=== PATIENT | male | born 1960 | race Caucasian/White ===

== ENCOUNTER 2018-01-02 14:52 | Emergency (ER) | payer MEDICARE, OTHER ==
[~2018-01-02] VITALS: Ht 177.8 cm; Wt 104.3 kg
[~2018-01-02 14:52] MED LIST: AMLO2.5T PO; ASPI-999 PO; CITA40TA19 PO; GABA800T2 PO; IBUP-1780 PO; IBUP-2055 PO; LISI-552 PO; ONDA4TAB8 PO; TRAM50TA2 PO
--- OUTSIDE RECORDS SUMMARY | 2018-01-02 14:58 | XMS REPORT ---
Author Author ASUNCION LAUREN Organization [employer] Address Unknown Phone Unavailable Care Team Providers Care Frame Polisher Name Role Phone ASUNCION LAUREN CP Unavailable Allergies No Known Allergies Problems No Known Problems Medications No Known Medications Results No Known Results Summary Purpose [employer] Submission
--- OUTSIDE RECORDS SUMMARY | 2018-01-02 14:58 | XMS REPORT ---
Author Author ASUNCION LAUREN [facility] Address [address] [place] [address] Care Team Providers Care Black Puller Name Role Phone ASUNCION LAUREN Unavailable PROBLEMS Type Condition ICD9-CM Code [id number] Code Onset Dates Condition Status SNOMED Code Problem Other chronic pain G89.29 Active 74175132 Problem Alcohol abuse with intoxication, unspecified F10.129 Active 007227174 Problem Essential hypertension I10 Active 57752893 Problem Alcohol abuse F10.10 Active 27802623 Problem Suicide attempt T14.91 Active 39837772 Problem Low back pain M54.5 Active 422522631 Problem Acute stress disorder F43.0 Active 50450202 Problem Major depressive disorder, single episode, severe F32.2 Active 380621644353 Problem Uncomplicated alcohol dependence F10.20 Active 70721206 Problem Major depressive disorder with single episode, remission status unspecified F32.9 Active 32403581 Problem Lumbago with sciatica, right side M54.41 Active 042253832 Problem Opioid dependence in remission F11.21 Active 071157636 ALLERGIES No Information SOCIAL HISTORY Never Assessed PLAN OF CARE VITAL SIGNS MEDICATIONS No Known Medications RESULTS No Results PROCEDURES No Known procedures IMMUNIZATIONS No Known Immunizations MEDICAL (GENERAL) HISTORY Type Description Date Medical History Hypertension Medical History Depression Medical History Chronic Back Pain Medical History Polysubstance abuse. Medical History intentional overdose 07/2016 Surgical History Left knee replacement x4 Hospitalization History surgeries Hospitalization History suicide attempt, polysubstance abusem uncontrolled HTN , Intentional overdose--[facility] 08/07/16
--- OUTSIDE RECORDS SUMMARY | 2018-01-02 14:58 | XMS REPORT ---
Author Author ASUNCION LAUREN [facility] Address [address] [place] [address] Care Team Providers Care Safety Glass Installer Name Role Phone ASUNCION LAUREN Unavailable PROBLEMS Type Condition ICD9-CM Code HCQ29-DE Code Onset Dates Condition Status SNOMED Code Problem Essential hypertension I10 Active 68014733 Problem Other chronic pain G89.29 Active 20222900 Problem Alcohol abuse F10.10 Active 36991785 Assessment Psychiatric disorder F99 13 Aug, 2016 Active 43124572 Problem Low back pain M54.5 Active 029638692 Problem Suicide attempt T14.91 Active 09243719 ALLERGIES Unknown Allergies SOCIAL HISTORY No smoking Hx information available PLAN OF CARE VITAL SIGNS MEDICATIONS Medication Instructions Dosage Frequency Start Date End Date Duration Status Mirtazapine 7.5 MG Orally Once a day 1 tablet at bedtime 24h Active RESULTS No Results PROCEDURES No Known procedures IMMUNIZATIONS No Known Immunizations
--- OUTSIDE RECORDS SUMMARY | 2018-01-02 14:58 | XMS REPORT ---
Author Author ASUNCION LAUREN [facility] Address [address] [place] [address] Care Team Providers Care Deck Molder Name Role Phone ASUNCION LAUREN Unavailable PROBLEMS Type Condition ICD9-CM Code HWB88-SC Code Onset Dates Condition Status SNOMED Code Problem Other chronic pain G89.29 Active 01281869 Problem Alcohol abuse with intoxication, unspecified F10.129 Active 680941510 Problem Essential hypertension I10 Active 08735875 Problem Alcohol abuse F10.10 Active 79774943 Problem Suicide attempt T14.91 Active 98329757 Problem Low back pain M54.5 Active 557264841 Problem Acute stress disorder F43.0 Active 44851051 Problem Major depressive disorder, single episode, severe F32.2 Active 767168746392 Problem Uncomplicated alcohol dependence F10.20 Active 64378355 Problem Major depressive disorder with single episode, remission status unspecified F32.9 Active 84301085 Problem Lumbago with sciatica, right side M54.41 Active 941232595 Problem Opioid dependence in remission F11.21 Active 159386945 ALLERGIES No Known Allergies SOCIAL HISTORY No smoking Hx information available PLAN OF CARE VITAL SIGNS MEDICATIONS Medication Instructions Dosage Frequency Start Date End Date Duration Status Tramadol HCl 50 MG Orally 3 times a day 1 tablet as needed 8h 28 days Active RESULTS No Results PROCEDURES No Known procedures IMMUNIZATIONS No Known Immunizations
--- OUTSIDE RECORDS SUMMARY | 2018-01-02 14:59 | XMS REPORT ---
Author Author MARK COPELAND [facility] Address [address] [place] [address] Care Team Providers Care Supervisor Nuclear Medicine Name Role Phone MARK COPELAND Unavailable PROBLEMS Type Condition ICD9-CM Code TDY82-CF Code Onset Dates Condition Status SNOMED Code Problem Other chronic pain G89.29 Active 66967628 Problem Low back pain M54.5 Active 394069127 Assessment Hypotension due to drugs I95.2 May, Active 777706822 Problem Suicide attempt T14.91 Active 20096492 Problem Alcohol abuse F10.10 Active 14873938 ALLERGIES Substance Reaction Event Type Date Status N.K.D.A. Unknown Non Drug Allergy May, Unknown SOCIAL HISTORY No smoking Hx information available PLAN OF CARE VITAL SIGNS Height 70 in 2016-06-18 Weight 231.5 lbs 2016-06-18 Heart Rate 100 bpm 2016-06-18 Respiratory Rate 18 2016-06-18 BMI 33.21 kg/m2 2016-06-18 Blood pressure systolic 98 mmHg 2016-06-18 Blood pressure diastolic 70 mmHg 2016-06-18 MEDICATIONS Medication Instructions Dosage Frequency Start Date End Date Duration Status Aspir-81 81 MG Orally Once a day 1 tablet 24h Active Ibuprofen 200 MG Orally every 6 hrs 1 tablet as needed 6h Active Gabapentin 800 MG Orally Three times a day 1 tablet 8h Active Benadryl 50 mg 3 tablets at bedtime Active Naproxen 250 MG Orally every 4-6 hours as needed 1 tablet Active Tramadol HCl 50 mg Orally every 3 hours 1 tablet as needed 3h Active Citalopram Hydrobromide 20 mg Orally Once a day 1 tablet 24h Active RESULTS No Results PROCEDURES Procedure Date Ordered Related Diagnosis Body Site Office Visit, Est Pt., Level 3 Jun 18, 2016 IMMUNIZATIONS No Known Immunizations
--- OUTSIDE RECORDS SUMMARY | 2018-01-02 14:59 | XMS REPORT ---
Author Author ASUNCION LAUREN [facility] Address [address] [place] [address] Care Team Providers Care Doctor Of Podiatric Medicine Name Role Phone ASUNCION LAUREN Unavailable PROBLEMS Type Condition ICD9-CM Code UHA33-LG Code Onset Dates Condition Status SNOMED Code Problem Other chronic pain G89.29 Active 64599993 Problem Alcohol abuse with intoxication, unspecified F10.129 Active 138283912 Problem Essential hypertension I10 Active 58071138 Problem Alcohol abuse F10.10 Active 38499906 Problem Suicide attempt T14.91 Active 50240659 Problem Low back pain M54.5 Active 616417679 Problem Acute stress disorder F43.0 Active 26772646 Problem Major depressive disorder, single episode, severe F32.2 Active 026044317625 Problem Uncomplicated alcohol dependence F10.20 Active 85776378 Problem Major depressive disorder with single episode, remission status unspecified F32.9 Active 10224574 Problem Lumbago with sciatica, right side M54.41 Active 772981759 Problem Opioid dependence in remission F11.21 Active 882950632 ALLERGIES Substance Reaction Event Type Date Status N.K.D.A. Unknown Non Drug Allergy Sep, Unknown SOCIAL HISTORY No smoking Hx information available PLAN OF CARE Activity Details Follow Up 3 Months Reason:chronic pain VITAL SIGNS Height 70 in 2016-10-14 Weight 244.4 lbs 2016-10-14 Temperature 97.8 degrees Fahrenheit 2016-10-14 Heart Rate 80 bpm 2016-10-14 Respiratory Rate 20 2016-10-14 BMI 35.06 kg/m2 2016-10-14 Blood pressure systolic 146 mmHg 2016-10-14 Blood pressure diastolic 92 mmHg 2016-10-14 MEDICATIONS Medication Instructions Dosage Frequency Start Date End Date Duration Status Mirtazapine 15 MG Orally Once a day 0.5 tablet at bedtime 24h 30 days Active Aspir-81 81 MG Orally Once a day 1 tablet 24h Active Lisinopril 40 mg Orally Once a day 1 tablet 24h Active Ibuprofen 800 MG Orally every 8 hours, PRN 1 tablet as needed Active Amlodipine Besylate 2.5 MG Orally Once a day 1 tablet 24h Active Tramadol HCl 50 MG Orally 3 times a day 1 tablet as needed 8h 28 days Active Citalopram Hydrobromide 40 MG Orally Once a day 1 tablet 24h Active Lidoderm 5 % Externally Once a day Remove after 12 hours. May use only 1 patch every 24 hours 1 patch Aug, Active Gabapentin 800 MG Orally Three times a day 1 tablet 8h Active Norvasc 10 MG Orally Once a day 1 tablet 24h Active RESULTS Name Result Date Reference Range LIPID PANEL 2016-10-14 Cholesterol, Total 157 100-199 Triglycerides 139 0-149 HDL Cholesterol 46 >39 VLDL Cholesterol Lucho 28 5-40 LDL Cholesterol Calc 83 0-99 Comment: CMP 2016-10-14 Glucose, Serum 86 65-99 BUN 10 6-24 Creatinine, Serum 0.82 0.76-1.27 eGFR If NonAfricn Am 100 >59 eGFR If Africn Am 115 >59 BUN/Creatinine Ratio 12 9-20 Sodium, Serum 136 134-144 Potassium, Serum 4.6 3.5-5.2 Chloride, Serum 96 96-106 Carbon Dioxide, Total 24 18-29 Calcium, Serum 9.2 8.7-10.2 Protein, Total, Serum 6.8 6.0-8.5 Albumin, Serum 4.4 3.5-5.5 Globulin, Total 2.4 1.5-4.5 A/G Ratio 1.8 1.1-2.5 Bilirubin, Total 0.3 0.0-1.2 Alkaline Phosphatase, S 76 39-117 AST (SGOT) 19 0-40 ALT (SGPT) 17 0-44 PROCEDURES Procedure Date Ordered Related Diagnosis Body Site COMPREHEN METABOLIC PANEL Oct 14, 2016 LIPID PANEL Oct 14, 2016 VENIPUNCT, ROUTINE* Oct 14, 2016 Office Visit, Est Pt., Level 3 Oct 14, 2016 IMMUNIZATIONS No Known Immunizations
--- OUTSIDE RECORDS SUMMARY | 2018-01-02 14:59 | XMS REPORT ---
Author Author ASUNCION LAUREN Organization [facility] Address [address] [place] [address] Care Team Providers Care Medical Doctor Nuclear Medicine Name Role Phone ASUNCION LAUREN Unavailable PROBLEMS Type Condition ICD9-CM Code YZU87-AG Code Onset Dates Condition Status SNOMED Code Problem Other chronic pain G89.29 Active 45231491 Problem Alcohol abuse with intoxication, unspecified F10.129 Active 448046682 Problem Essential hypertension I10 Active 55398476 Problem Alcohol abuse F10.10 Active 55782563 Problem Suicide attempt T14.91 Active 30116296 Problem Low back pain M54.5 Active 507681702 Problem Acute stress disorder F43.0 Active 68686916 Problem Major depressive disorder, single episode, severe F32.2 Active 651078509638 Problem Uncomplicated alcohol dependence F10.20 Active 78662970 Problem Major depressive disorder with single episode, remission status unspecified F32.9 Active 39826768 Problem Lumbago with sciatica, right side M54.41 Active 907822168 Problem Opioid dependence in remission F11.21 Active 813971666 ALLERGIES No Information ENCOUNTERS Encounter Location Date Diagnosis [place] [address] [place] [address] Sep, Lumbago with sciatica, right side M54.41 [place] [address] [place] [id number] [place] [address]50- [address]7 Sep, Essential hypertension I10 ; Lumbago with sciatica, right side M54.41 and Colon cancer screening Z12.11 [place] [address] [place] [address] 92346- 3590 14 Feb, 2017 Essential hypertension I10 and Major depressive disorder, single episode, severe F32.2 [place] [address] [place] [id number] [place] [address] 33054- 9840 Feb, Essential hypertension I10 [facility] [address] [place] [id number] [place] [address] 51587- 8426 January, Major depressive disorder, single episode, severe F32.2 and Acute stress disorder F43.0 [facility] [address] [place] [address] 53868- 3435 Dec, Major depressive disorder, single episode, severe F32.2 ; Lumbago with sciatica, right side M54.41 and Dysthymia F34.1 [place] [address] [place] [id number] [place] [address] 70122- 0967 Dec, Major depressive disorder, single episode, severe F32.2 [place] [address] [place] [id number] [place] [address] 07946- 4890 Dec, Major depressive disorder with single episode, remission status unspecified F32.9 ; Uncomplicated alcohol dependence F10.20 and Opioid dependence in remission F11.21 [place] [address] [place] [address] 33917- 2778 11 Dec, 2016 Lumbago with sciatica, right side M54.41 [place] [address] [place] [id number] [place] [address] 99386- 6487 15 Nov, 2016 [place] [address] [id number] [place] [address] 99883- 4066 15 Nov, 2016 Lumbago with sciatica, right side M54.41 ; Uncomplicated alcohol dependence F10.20 and Opioid dependence in remission F11.21 [place] [address] [place] [address] 68177- 0798 14 Nov, 2016 Other chronic pain G89.29 [facility] [address] [address] [id number] [place] [address] 18943- 3546 14 Oct, 2016 Other chronic pain G89.29 [facility] [address] [place] [id number] [place] [address] 69070- 5523 07 Oct, 2016 Major depressive disorder with single episode, remission status unspecified F32.9 ; Uncomplicated alcohol dependence F10.20 and Opioid dependence in remission F11.21 [facility] [address] [id number] [place] [address] 31754- 6526 Sep, 2017 Major depressive disorder with single episode, remission status unspecified F32.9 ; Uncomplicated alcohol dependence F10.20 and Opioid dependence in remission F11.21 [facility] [address] [address] Sep, [facility] [address] [place] [address] Sep, [facility] [address] [place] [id number] [place] [address] 48832- 2152 Sep, Dysthymia F34.1 ; Essential hypertension I10 ; Alcohol abuse with intoxication, unspecified F10.129 and Other chronic pain G89.29 [facility] [address] [address] [id number] [place] [address] 29190- 4084 Sep, Other chronic pain G89.29 [facility] [address] [id number] [place] [address] 12673- 0647 Sep, Psychiatric disorder F99 [facility] [address] [id number] [place] [address] 31041- 3005 Aug, [facility] [address] [id number] [place] [address] 47829- 0941 Aug, Other chronic pain G89.29 [facility] [address] [id number] [place] [address] 58416- 0537 Aug, Psychiatric disorder F99 [facility] [address] [id number] [place] [address] 46940- 0258 23 Jul, 2016 Other chronic pain G89.29 and Essential hypertension I10 [facility] [address] [id number] [place] [address] 64159- 5170 Jul, [facility] [id number] [place] [address] 95322- 5628 14 Jul, 2016 [place] [address] [address] May, Lumbago with sciatica, right side M54.41 ; Other chronic pain G89.29 ; Dysthymia F34.1 and Essential hypertension I10 [place] [address] [place] [address] May, Hypotension due to drugs I95.2 [place] [address] [id number] [place] [address] 58558- 3365 May, [place] [address] [id number] [place] [address] 49550- 8747 May, Pseudogout M11.20 and Dysthymia F34.1 [place] [address] [id number] [place] [address] 46768- 7758 Apr, [place] [address] [place] [id number] [place] [address] 64554- [address] Apr, Encounter to establish care Z76.89 ; Dysthymia F34.1 ; Lumbago with sciatica, right side M54.41 ; Other chronic pain G89.29 and Pseudogout M11.20 IMMUNIZATIONS No Known Immunizations SOCIAL HISTORY Never Assessed REASON FOR VISIT Requests Return Call PLAN OF CARE VITAL SIGNS MEDICATIONS Medication Instructions Dosage Frequency Start Date End Date Duration Status Lisinopril 20 MG Orally Once a day 1 tablet 24h 90 days Active RESULTS No Results PROCEDURES No Known procedures INSTRUCTIONS MEDICATIONS ADMINISTERED No Known Medications MEDICAL (GENERAL) HISTORY Type Description Date Medical History Hypertension Medical History Depression Medical History Chronic Back Pain Medical History Polysubstance abuse. Medical History intentional overdose 07/2016 Surgical History Left knee replacement x4 Hospitalization History surgeries Hospitalization History suicide attempt, polysubstance abusem uncontrolled HTN , Intentional overdose--[facility] 08/07/16
--- OUTSIDE RECORDS SUMMARY | 2018-01-02 14:59 | XMS REPORT ---
Author Author NAVEEN MARISCAL Organization [facility] Address [address] [place] [address] Care Team Providers Care Clinical Assoc Name Role Phone NAVEEN MARISCAL Unavailable PROBLEMS Type Condition ICD9-CM Code GZS43-VT Code Onset Dates Condition Status SNOMED Code Problem Other chronic pain G89.29 Active 27825983 Problem Alcohol abuse with intoxication, unspecified F10.129 Active 663644094 Problem Essential hypertension I10 Active 67045921 Problem Alcohol abuse F10.10 Active 59688076 Problem Suicide attempt T14.91 Active 17013107 Problem Low back pain M54.5 Active 067129520 Problem Acute stress disorder F43.0 Active 09921769 Problem Major depressive disorder, single episode, severe F32.2 Active 445430276924 Problem Uncomplicated alcohol dependence F10.20 Active 17427724 Problem Major depressive disorder with single episode, remission status unspecified F32.9 Active 58136217 Problem Lumbago with sciatica, right side M54.41 Active 187780663 Problem Opioid dependence in remission F11.21 Active 745412125 ALLERGIES No Known Allergies SOCIAL HISTORY No smoking Hx information available PLAN OF CARE Activity Details Follow Up 1 Week Reason:depresson VITAL SIGNS MEDICATIONS No Known Medications RESULTS No Results PROCEDURES Procedure Date Ordered Related Diagnosis Body Site Psychotherapy, patient &/family, 30 minutes, established patient Oct 18, 2016 IMMUNIZATIONS No Known Immunizations
--- OUTSIDE RECORDS SUMMARY | 2018-01-02 14:59 | XMS REPORT ---
Author Author ASUNCION LAUREN [facility] Address [address] [place] [address] Care Team Providers Care Electric Appliance Installer Name Role Phone ASUNCION LAUREN Unavailable PROBLEMS Type Condition ICD9-CM Code QFR06-YP Code Onset Dates Condition Status SNOMED Code Problem Other chronic pain G89.29 Active 87689620 Problem Alcohol abuse with intoxication, unspecified F10.129 Active 640143572 Problem Essential hypertension I10 Active 14318432 Problem Alcohol abuse F10.10 Active 31490562 Problem Suicide attempt T14.91 Active 54383949 Problem Low back pain M54.5 Active 937193927 Problem Acute stress disorder F43.0 Active 51734905 Problem Major depressive disorder, single episode, severe F32.2 Active 636368743563 Problem Uncomplicated alcohol dependence F10.20 Active 34093583 Problem Major depressive disorder with single episode, remission status unspecified F32.9 Active 03918950 Problem Lumbago with sciatica, right side M54.41 Active 281769032 Problem Opioid dependence in remission F11.21 Active 788022734 ALLERGIES No Known Allergies SOCIAL HISTORY Never Assessed PLAN OF CARE Activity Details Follow Up 3 Months Reason:pain mgmt VITAL SIGNS Height 70 in 2016-12-08 Weight 233.0 lbs 2016-12-08 Temperature 98.7 degrees Fahrenheit 2016-12-08 Heart Rate 88 bpm 2016-12-08 Respiratory Rate 20 2016-12-08 BMI 33.43 kg/m2 2016-12-08 Blood pressure systolic 130 mmHg 2016-12-08 Blood pressure diastolic 82 mmHg 2016-12-08 MEDICATIONS Medication Instructions Dosage Frequency Start Date End Date Duration Status Gabapentin 800 MG Orally Three times a day 1 tablet 8h 90 days Active Aspir-81 81 MG Orally Once a day 1 tablet 24h Active Tramadol HCl 50 mg Orally 2 times a day 1 tablet as needed 12h 15 Nov, 2016 28 days Active Tylenol Extra Strength 500 MG Orally every 6 hrs 2 tablets as needed 6h Active Ibuprofen 800 MG Orally 3 times a day 1 tablet as needed 8h 90 days Active Mirtazapine 15 MG Orally Once a day 0.5 tablet at bedtime 24h 30 days Active Citalopram Hydrobromide 40 MG Orally Once a day 1 tablet 24h Active Norvasc 10 MG Orally Once a day 1 tablet 24h Active Lidoderm 5 % Externally Once a day Remove after 12 hours. May use only 1 patch every 24 hours 1 patch Aug, Active Lisinopril 40 mg Orally Once a day 1 tablet 24h Active RESULTS No Results PROCEDURES No Known procedures IMMUNIZATIONS No Known Immunizations MEDICAL (GENERAL) HISTORY Type Description Date Medical History Hypertension Medical History Depression Medical History Chronic Back Pain Medical History Polysubstance abuse. Medical History intentional overdose 07/2016 Surgical History Left knee replacement x4 Hospitalization History surgeries Hospitalization History suicide attempt, polysubstance abusem uncontrolled HTN , Intentional overdose--[facility] 08/07/16
--- OUTSIDE RECORDS SUMMARY | 2018-01-02 14:59 | XMS REPORT ---
Author Author ALBERTO BENNETT Organization [facility] Address [address] [place] [address] Care Team Providers Care Water Pollution Control Inspector Name Role Phone ALBERTO BENNETT Unavailable PROBLEMS Type Condition ICD9-CM Code IRL18-CI Code Onset Dates Condition Status SNOMED Code Problem Other chronic pain G89.29 Active 95313138 Problem Alcohol abuse with intoxication, unspecified F10.129 Active 192583598 Problem Essential hypertension I10 Active 34564220 Problem Alcohol abuse F10.10 Active 22245268 Problem Suicide attempt T14.91 Active 98734235 Problem Low back pain M54.5 Active 931232069 Problem Acute stress disorder F43.0 Active 72052518 Problem Major depressive disorder, single episode, severe F32.2 Active 745628095740 Problem Uncomplicated alcohol dependence F10.20 Active 92109532 Problem Major depressive disorder with single episode, remission status unspecified F32.9 Active 20987121 Problem Lumbago with sciatica, right side M54.41 Active 429636846 Problem Opioid dependence in remission F11.21 Active 400404959 ALLERGIES No Information SOCIAL HISTORY Never Assessed PLAN OF CARE VITAL SIGNS MEDICATIONS No Known Medications RESULTS No Results PROCEDURES Procedure Date Ordered Result Body Site Alcohol and/or drug services December 08, 2016 IMMUNIZATIONS No Known Immunizations MEDICAL (GENERAL) HISTORY Type Description Date Medical History Hypertension Medical History Depression Medical History Chronic Back Pain Medical History Polysubstance abuse. Medical History intentional overdose 07/2016 Surgical History Left knee replacement x4 Hospitalization History surgeries Hospitalization History suicide attempt, polysubstance abusem uncontrolled HTN , Intentional overdose--[facility] 08/07/16
--- OUTSIDE RECORDS SUMMARY | 2018-01-02 14:59 | XMS REPORT ---
Author Author ASUNCION ALUREN [facility] Address [address] [place] [address] Care Team Providers Care Machine Applicator Cementer Name Role Phone ASUNCION LAUREN Unavailable PROBLEMS Type Condition ICD9-CM Code KMU36-YU Code Onset Dates Condition Status SNOMED Code Problem Other chronic pain G89.29 Active 26220002 Problem Alcohol abuse with intoxication, unspecified F10.129 Active 158078692 Problem Essential hypertension I10 Active 64094091 Problem Alcohol abuse F10.10 Active 37506591 Problem Suicide attempt T14.91 Active 13590464 Problem Low back pain M54.5 Active 075363498 Problem Acute stress disorder F43.0 Active 77700973 Problem Major depressive disorder, single episode, severe F32.2 Active 882910386837 Problem Uncomplicated alcohol dependence F10.20 Active 72225254 Problem Opioid dependence in remission F11.21 Active 962749073 Problem Lumbago with sciatica, right side M54.41 Active 389693383 Problem Major depressive disorder with single episode, remission status unspecified F32.9 Active 24172130 ALLERGIES No Known Allergies SOCIAL HISTORY No smoking Hx information available PLAN OF CARE VITAL SIGNS MEDICATIONS Medication Instructions Dosage Frequency Start Date End Date Duration Status Tramadol HCl 50 mg Orally 3 times a day 1 tablet as needed 8h Active RESULTS No Results PROCEDURES No Known procedures IMMUNIZATIONS No Known Immunizations
--- OUTSIDE RECORDS SUMMARY | 2018-01-02 14:59 | XMS REPORT ---
Author Author ASUNCION LAUREN [facility] Address [address] [place] [address] Care Team Providers Care Group Leader Semiconductor Processing Name Role Phone ASUNCION LAUREN Unavailable PROBLEMS Type Condition ICD9-CM Code [id number] Code Onset Dates Condition Status SNOMED Code Problem Other chronic pain G89.29 Active 64993135 Problem Alcohol abuse with intoxication, unspecified F10.129 Active 459630324 Problem Essential hypertension I10 Active 18546360 Problem Alcohol abuse F10.10 Active 53832719 Problem Suicide attempt T14.91 Active 23893771 Problem Low back pain M54.5 Active 084001436 Problem Acute stress disorder F43.0 Active 82126963 Problem Major depressive disorder, single episode, severe F32.2 Active 769938118511 Problem Uncomplicated alcohol dependence F10.20 Active 85362427 Problem Major depressive disorder with single episode, remission status unspecified F32.9 Active 80385635 Problem Lumbago with sciatica, right side M54.41 Active 796490481 Problem Opioid dependence in remission F11.21 Active 572539109 ALLERGIES No Information SOCIAL HISTORY Never Assessed PLAN OF CARE VITAL SIGNS MEDICATIONS Medication [...] attempt, polysubstance abusem uncontrolled HTN , Intentional overdose--[facility] 08/07/16
--- OUTSIDE RECORDS SUMMARY | 2018-01-02 14:59 | XMS REPORT ---
Author Author ASUNCION LAUREN [facility] Address [address] [place] [address] Care Team Providers Care Cotton Weigher Name Role Phone ASUNCION LAUREN Unavailable PROBLEMS Type Condition ICD9-CM Code [id number] Code Onset Dates Condition Status SNOMED Code Problem Other chronic pain G89.29 Active 38851789 Problem Alcohol abuse with intoxication, unspecified F10.129 Active 111857360 Problem Essential hypertension I10 Active 69529048 Problem Alcohol abuse F10.10 Active 69622681 Problem Suicide attempt T14.91 Active 37294052 Problem Low back pain M54.5 Active 074215340 Problem Acute stress disorder F43.0 Active 56708240 Problem Major depressive disorder, single episode, severe F32.2 Active 111026424958 Problem Uncomplicated alcohol dependence F10.20 Active 44441968 Problem Opioid dependence in remission F11.21 Active 112210769 Problem Lumbago with sciatica, right side M54.41 Active 090791578 Problem Major depressive disorder with single episode, remission status unspecified F32.9 Active 37922620 ALLERGIES No Known Allergies SOCIAL HISTORY No smoking Hx information available PLAN OF CARE VITAL SIGNS MEDICATIONS Medication Instructions Dosage Frequency Start Date End Date Duration Status Lidoderm 5 % Externally Once a day Remove after 12 hours. May use only 1 patch every 24 hours 1 patch Aug, Active RESULTS No Results PROCEDURES No Known procedures IMMUNIZATIONS No Known Immunizations
--- OUTSIDE RECORDS SUMMARY | 2018-01-02 14:59 | XMS REPORT ---
Author Author ASUNCION LAUREN [facility] Address [address] [place] [address] Care Team Providers Care Product Ambassador Name Role Phone ASUNCION LAUREN Unavailable PROBLEMS Type Condition ICD9-CM Code UOD13-UG Code Onset Dates Condition Status SNOMED Code Problem Other chronic pain G89.29 Active 51664093 Problem Low back pain M54.5 Active 072723628 Assessment Pseudogout M11.20 May, Active 074025266 Assessment Dysthymia F34.1 May, Active 73099625 Problem Suicide attempt T14.91 Active 92120041 Problem Alcohol abuse F10.10 Active 06520275 ALLERGIES Substance Reaction Event Type Date Status N.K.D.A. Unknown Non Drug Allergy May, Unknown SOCIAL HISTORY No smoking Hx information available PLAN OF CARE VITAL SIGNS Height 70 in 2016-05-27 Weight 228.6 lbs 2016-05-27 Heart Rate 76 bpm 2016-05-27 Respiratory Rate 18 2016-05-27 BMI 32.80 kg/m2 2016-05-27 Blood pressure systolic 94 mmHg 2016-05-27 Blood pressure diastolic 60 mmHg 2016-05-27 MEDICATIONS Medication Instructions Dosage Frequency Start Date End Date Duration Status Ibuprofen 200 MG Orally every 6 hrs 1 tablet as needed 6h Active Citalopram Hydrobromide 20 mg Orally Once a day 1 tablet 24h Active Naproxen 250 MG Orally every 4-6 hours as needed 1 tablet Active Aspir-81 81 MG Orally Once a day 1 tablet 24h Active Lisinopril 40 MG Orally Once a day 1 tablet 24h Active Norvasc 5 MG Orally Once a day 1 tablet 24h Active Gabapentin 800 MG Orally Three times a day 1 tablet 8h Active Benadryl 50 mg 3 tablets at bedtime Active Tramadol HCl 50 mg Orally every 3 hours 1 tablet as needed 3h Active RESULTS No Results PROCEDURES Procedure Date Ordered Related Diagnosis Body Site Office Visit, Est Pt., Level 3 May 27, 2016 IMMUNIZATIONS No Known Immunizations
--- OUTSIDE RECORDS SUMMARY | 2018-01-02 14:59 | XMS REPORT ---
Author Author NAVEEN MARISCAL Organization [facility] Address [address] [place] [address] Care Team Providers Care Sonography Technician Name Role Phone NAVEEN MARISCAL Unavailable PROBLEMS Type Condition ICD9-CM Code BBM87-EP Code Onset Dates Condition Status SNOMED Code Problem Other chronic pain G89.29 Active 01100993 Problem Alcohol abuse with intoxication, unspecified F10.129 Active 609738457 Problem Essential hypertension I10 Active 05751883 Problem Alcohol abuse F10.10 Active 18833583 Problem Suicide attempt T14.91 Active 84208681 Problem Low back pain M54.5 Active 036616312 Problem Acute stress disorder F43.0 Active 63261313 Problem Major depressive disorder, single episode, severe F32.2 Active 155307573537 Problem Uncomplicated alcohol dependence F10.20 Active 03988998 Problem Major depressive disorder with single episode, remission status unspecified F32.9 Active 62928509 Problem Lumbago with sciatica, right side M54.41 Active 268905875 Problem Opioid dependence in remission F11.21 Active 544461881 ALLERGIES No Known Allergies SOCIAL HISTORY No smoking Hx information available PLAN OF CARE Activity Details Follow Up Next available Reason:depression VITAL SIGNS MEDICATIONS No Known Medications RESULTS No Results PROCEDURES Procedure Date Ordered Related Diagnosis Body Site Psychotherapy, patient &/family, 30 minutes, established patient Nov 02, 2016 IMMUNIZATIONS No Known Immunizations
--- OUTSIDE RECORDS SUMMARY | 2018-01-02 14:59 | XMS REPORT ---
Author Author ASUNCION LAUREN [facility] Address [address] [place] [address] Care Team Providers Care Drapery Estimator Name Role Phone ASUNCION LAUREN Unavailable PROBLEMS Type Condition ICD9-CM Code NHJ45-GO Code Onset Dates Condition Status SNOMED Code Problem Essential hypertension I10 Active 05184512 Problem Other chronic pain G89.29 Active 33996546 Problem Alcohol abuse F10.10 Active 28388850 Assessment Other chronic pain G89.29 Jul, Active 00165650 Problem Low back pain M54.5 Active 528130305 Problem Suicide attempt T14.91 Active 69322817 ALLERGIES Substance Reaction Event Type Date Status N.K.D.A. Unknown Non Drug Allergy Jul, Unknown SOCIAL HISTORY No smoking Hx information available PLAN OF CARE VITAL SIGNS Height 70 in 2016-08-18 Weight 229.9 lbs 2016-08-18 Heart Rate 88 bpm 2016-08-18 Respiratory Rate 20 2016-08-18 BMI 32.98 kg/m2 2016-08-18 Blood pressure systolic 142 mmHg 2016-08-18 Blood pressure diastolic 100 mmHg 2016-08-18 MEDICATIONS Medication Instructions Dosage Frequency Start Date End Date Duration Status Amlodipine Besylate 2.5 MG Orally Once a day 1 tablet 24h Active Gabapentin 800 MG Orally Three times a day 1 tablet 8h Active Norvasc 10 MG Orally Once a day 1 tablet 24h Active Tramadol HCl 50 mg Orally 3 times a day 1 tablet as needed 8h Active Aspir-81 81 MG Orally Once a day 1 tablet 24h Active Mirtazapine 7.5 mg Orally Once a day 1 tablet at bedtime 24h Active Lidoderm 5 % Active Lisinopril 40 mg Orally Once a day 1 tablet 24h Active Ibuprofen 800 MG Orally every 8 hours, PRN 1 tablet as needed Active RESULTS No Results PROCEDURES Procedure Date Ordered Related Diagnosis Body Site Office Visit, Est Pt., Level 3 Aug 18, 2016 IMMUNIZATIONS No Known Immunizations
--- OUTSIDE RECORDS SUMMARY | 2018-01-02 14:59 | XMS REPORT ---
Author Author ASUNCION LAUREN [facility] Address [address] [place] [address] Care Team Providers Care Synthetic Soil Blocks Pulper Name Role Phone ASUNCION LAUREN Unavailable PROBLEMS Type Condition ICD9-CM Code RTV20-UD Code Onset Dates Condition Status SNOMED Code Problem Other chronic pain G89.29 Active 03113596 Problem Alcohol abuse with intoxication, unspecified F10.129 Active 002846995 Problem Essential hypertension I10 Active 78369785 Problem Alcohol abuse F10.10 Active 99550683 Problem Suicide attempt T14.91 Active 43371792 Problem Low back pain M54.5 Active 862273736 Problem Acute stress disorder F43.0 Active 22801204 Problem Major depressive disorder, single episode, severe F32.2 Active 497465290970 Problem Uncomplicated alcohol dependence F10.20 Active 97212873 Problem Major depressive disorder with single episode, remission status unspecified F32.9 Active 27189499 Problem Lumbago with sciatica, right side M54.41 Active 678152912 Problem Opioid dependence in remission F11.21 Active 824058763 ALLERGIES No Information SOCIAL HISTORY Never Assessed [...] attempt, polysubstance abusem uncontrolled HTN , Intentional overdose--[facility] 08/07/16
--- OUTSIDE RECORDS SUMMARY | 2018-01-02 15:00 | XMS REPORT ---
Author Author ASUNCION LAUREN Organization [employer] Address Unknown Phone Unavailable Care Team Providers Care Anesthesiologist And Critical Care Name Role Phone ASUNCION LAUREN CP Unavailable Allergies No Known Allergies Problems Problem Type Condition Code Onset Dates Condition Status Problem Other chronic pain G89.29 Active Problem Low back pain M54.5 Active Problem Essential hypertension I10 Active Problem Suicide attempt T14.91 Active Problem Alcohol abuse F10.10 Active Medications No Known Medications Results No Known Results Summary Purpose [employer] Submission
--- OUTSIDE RECORDS SUMMARY | 2018-01-02 15:00 | XMS REPORT ---
Author Author MARLIN ZAMORA Organization [employer] Address Unknown Phone Unavailable Care Team Providers Care Photographer Aerial Name Role Phone MARLIN ZAMORA Unavailable Allergies No Known Allergies Problems Problem Type Condition Code Onset Dates Condition Status Problem Low back pain M54.5 Active Problem Suicide attempt T14.91 Active Problem Other chronic pain G89.29 Active Problem Alcohol abuse F10.10 Active Medications No Known Medications Results No Known Results Summary Purpose [employer] Submission
--- OUTSIDE RECORDS SUMMARY | 2018-01-02 15:00 | XMS REPORT ---
Author Author ASUNCION LAUREN Organization [employer] Address Unknown Phone Unavailable Care Team Providers Care Superior Court Justice Name Role Phone ASUNCION LAUREN CP Unavailable Allergies, Adverse Reactions, Alerts Substance Reaction Event Type N.K.D.A. Info Not Available Non Drug Allergy Problems Problem Type Condition Code Onset Dates Condition Status Problem Low back pain M54.5 Active Assessment Lumbago with sciatica, right side M54.41 Active Problem Other chronic pain G89.29 Active Assessment Essential hypertension I10 Active Assessment Other chronic pain G89.29 Active Assessment Dysthymia F34.1 Active Medications Medication Code System Code Instructions Start Date End Date Status Dosage Aspir-81 [facility] [address]-77 81 MG Orally Once a day 1 tablet Ibuprofen [facility] [address]-75 200 MG Orally every 6 hrs 1 tablet as needed Tramadol HCl [facility] [address]-17 50 mg Orally every 3 hours 1 tablet as needed Gabapentin [facility] [address]-20 800 MG Orally Three times a day 1 tablet Benadryl [facility] [address]-94 50 mg Orally 3 tablets at bedtime Lisinopril [facility] [address]-05 20 MG Orally Once a day 1/2 tablet Citalopram Hydrobromide [facility] [address]-28 40 MG Orally Once a day 1 tablet Procedures Procedure Coding System Code Date Office Visit, Est Pt., Level 3 CPT-4 40225 Jun 23, 2016 Vital Signs Date/Time: Jun 23, 2016 Cardiac Monitoring Heart Rate 84 bpm Weight 232 lbs Height 70 in BMI 33.28 Index Blood Pressure Diastolic 90 mmHg Blood Pressure Systolic 116 mmHg Results No Known Results Summary Purpose [employer] Submission
--- OUTSIDE RECORDS SUMMARY | 2018-01-02 15:00 | XMS REPORT ---
Author Author ALEJANDRO Rizzo Organization [facility] Address [address] [place] [address] Care Team Providers Care Strand Galvanizer Name Role Phone ALEJANDRO Rizzo Unavailable PROBLEMS Type Condition ICD9-CM Code VKB83-LN Code Onset Dates Condition Status SNOMED Code Problem Other chronic pain G89.29 Active 28812091 Problem Alcohol abuse with intoxication, unspecified F10.129 Active 823693984 Problem Essential hypertension I10 Active 54758797 Problem Alcohol abuse F10.10 Active 94913800 Problem Suicide attempt T14.91 Active 98290493 Problem Low back pain M54.5 Active 175381440 Problem Acute stress disorder F43.0 Active 39889307 Problem Major depressive disorder, single episode, severe F32.2 Active 036805090040 Problem Uncomplicated alcohol dependence F10.20 Active 55250988 Problem Major depressive disorder with single episode, remission status unspecified F32.9 Active 84663289 Problem Lumbago with sciatica, right side M54.41 Active 888187392 Problem Opioid dependence in remission F11.21 Active 019939639 ALLERGIES No Known Allergies SOCIAL HISTORY No smoking Hx information available PLAN OF CARE VITAL SIGNS MEDICATIONS No Known Medications RESULTS No Results PROCEDURES No Known procedures IMMUNIZATIONS No Known Immunizations
--- OUTSIDE RECORDS SUMMARY | 2018-01-02 15:00 | XMS REPORT ---
Author Author ASUNCION LAUREN [facility] Address [address] [place] [address] Care Team Providers Care Dental Hygienist Mobile Coordinator Name Role Phone ASUNCION LAUREN Unavailable PROBLEMS Type Condition ICD9-CM Code TMK55-NL Code Onset Dates Condition Status SNOMED Code Problem Other chronic pain G89.29 Active 00359945 Problem Low back pain M54.5 Active 987230397 Problem Suicide attempt T14.91 Active 53860043 Problem Alcohol abuse F10.10 Active 74266482 ALLERGIES Unknown Allergies SOCIAL HISTORY No smoking Hx information available PLAN OF CARE VITAL SIGNS MEDICATIONS Unknown Medications RESULTS No Results PROCEDURES No Known procedures IMMUNIZATIONS No Known Immunizations
--- OUTSIDE RECORDS SUMMARY | 2018-01-02 15:00 | XMS REPORT ---
Author Author ASUNCION LAUREN [facility] Address [address] [place] [address] Care Team Providers Care Tunnel Man Name Role Phone ASUNCION LAUREN Unavailable PROBLEMS Type Condition ICD9-CM Code CYB88-YM Code Onset Dates Condition Status SNOMED Code Problem Other chronic pain G89.29 Active 72857510 Problem Alcohol abuse with intoxication, unspecified F10.129 Active 442230053 Problem Essential hypertension I10 Active 63208159 Problem Alcohol abuse F10.10 Active 94129250 Problem Suicide attempt T14.91 Active 95840334 Problem Low back pain M54.5 Active 413472703 Problem Acute stress disorder F43.0 Active 81827543 Problem Major depressive disorder, single episode, severe F32.2 Active 266785609583 Problem Uncomplicated alcohol dependence F10.20 Active 23948739 Problem Major depressive disorder with single episode, remission status unspecified F32.9 Active 48631639 Problem Lumbago with sciatica, right side M54.41 Active 159481360 Problem Opioid dependence in remission F11.21 Active 311737378 ALLERGIES No Known Allergies SOCIAL HISTORY No smoking Hx information available PLAN OF CARE VITAL SIGNS MEDICATIONS Medication Instructions Dosage Frequency Start Date End Date Duration Status Mirtazapine 15 MG Orally Once a day 0.5 tablet at bedtime 24h 30 days Active RESULTS No Results PROCEDURES No Known procedures IMMUNIZATIONS No Known Immunizations
[2018-01-02] MEDS ORDERED: MIRT15TA6 (15:13)
[2018-01-02] MEDS ORDERED: CITA20TA7 PO (15:13)
--- NOTE | 2018-01-02 15:24 | ED Lower Extremity ---
General Chief Complaint: Lower Extremity Stated Complaint: RT FOOT SWOLLEN,TENDER Nursing Triage Note: PT CO OF R ANKLE PAIN AND TENDERNESS. HAS HX OF BLOOD CLOT 8YEARS AGO Nursing Sepsis Screen: No Definite Risk Source: patient Exam Limitations: no limitations History of Present Illness Date Seen by Provider: Jan 02, 2018 Time Seen by Provider: 15:10 Initial Comments Here with complaint of right lower extremity swelling and heaviness. Started a few days ago. Does have history of blood clots and is concerned that this may be that. 2 weeks ago he had an ingrown toenail that he dug out himself and had some inflammation afterwards. They got better after Epsom salts soaks and so he is also concerned that this could be infection. Denies fevers, vomiting, diarrhea, chills or other systemic symptoms. Onset: last week Severity: moderate Pain/Injury Location: right other (swelling of the right foot and To the level of the knee.) Method of Injury: unknown Modifying Factors: Improves With Immobilization, Worse With Movement Allergies and Home Medications Allergies Coded Allergies: No Known Drug Allergies (Unverified , 08/02/16) Home Medications Amlodipine Besylate 2.5 Mg Tablet, 2.5 MG PO DAILY Prescribed by: MARLIN ZAMORA on 08/08/16 0859 Aspirin 81 Mg Tab.chew, 81 MG PO DAILY, (Reported) Gabapentin 800 Mg Tablet, 800 MG PO TID, (Reported) Ibuprofen 200 Mg Tablet, 800 MG PO Q8H PRN for PAIN, (Reported) TAKES 4 (200 MG) TABLETS Lisinopril 20 Mg Tablet, 20 MG PO DAILY Prescribed by: MARLIN ZAMORA on 08/08/16 0859 Tramadol HCl 50 Mg Tablet, 50-100 MG PO Q6H PRN for PAIN, (Reported) TAKES 1-2 (50 MG) TABLETS Patient Home Medication List Home Medication List Reviewed: Yes Constitutional: no symptoms reported Respiratory: no symptoms reported, No cough, No short of breath, No wheezing Cardiovascular: No chest pain, edema Gastrointestinal: No abdominal pain, No nausea, No vomiting Musculoskeletal: see HPI, muscle pain, No muscle stiffness, No muscle cramps Skin: change in color, No lesions All Other Systems Reviewed Negative Unless Noted: Yes Past Pxjmreo-Pzxmyw-Fdkesu Hx Patient Social History Alcohol Use: Rarely Uses Number of Drinks Today: AA Alcohol Beverage of Choice: Beer Recreational Drug Use: No Type Used: Cigarettes Recent Foreign Travel: No Contact w/Someone Who Travel: No Recent Infectious Disease Expo: No Recent Hopitalizations: No (aug 02 --abd pain) Physical Abuse: No Sexual Abuse: No Immunizations Up To Date Tetanus Booster (TDap): Unknown Seasonal Allergies Seasonal Allergies: Yes Past Medical History Surgeries: Yes (3 KNEE SCOPES & TLK REPLACEMENT 2014) Orthopedic Respiratory: No Currently Using CPAP: No Currently Using BIPAP: No Cardiac: Yes Hypertension Neurological: No Reproductive Disorders: No Gastrointestinal: No Musculoskeletal: Yes (chronic r leg pain) Chronic Back Pain Endocrine: No Cancer: No Psychosocial: Yes Anxiety, Suicide Attempts, Depression Nursing Suicide Risk Score: 0 Integumentary: No Blood Disorders: No Adverse Reaction/Blood Tranf: No Family Medical History Reviewed Nursing Family Hx Hypertension 19 FATHER Myocardial infarction 19 FATHER Physical Exam Vital Signs Vital Signs - First Documented 01/02/18 15:00 Temp 97.1 Pulse 78 Resp 18 B/P (MAP) 146/98 (114) Pulse Ox 98 Capillary Refill : Less Than 3 Seconds General Appearance: WD/WN, no apparent distress Neck: full range of motion, supple Cardiovascular: regular rate, rhythm, no murmur Respiratory: lungs clear, normal breath sounds Gastrointestinal: non tender, soft Hips: bilateral hip non-tender, bilateral hip normal inspection, bilateral hip normal range of motion Legs: left leg non-tender, left leg normal inspection, left leg normal range of motion, left leg no evidence of injury, right leg soft tissue tenderness, right leg swelling, right leg other (right lower extremity from the knee down has some redness from the foot to the knee as well as swelling occluding the calf. Left lower extremity does not show any significant swelling. Both legs are nontender overall.) Feet: left foot non-tender, left foot normal inspection, left foot normal range of motion, right foot swelling, right foot other (right great toe shows some healing ingrown toenail. There is redness on the foot as well as swelling) Neurologic/Psychiatric: alert, oriented x 3 Skin: normal color, warm/dry Progress/Results/Core Measures My Orders Orders - MARY CRAWFORD MD Venous Lower Ext Rt (01/02/18 15:15) Vital Signs/I&O 01/02/18 15:00 Temp 97.1 Pulse 78 Resp 18 B/P (MAP) 146/98 (114) Pulse Ox 98 Blood Pressure Mean: 114 Progress Note : Progress Note Seen and evaluated. Ultrasound right lower extremity. Ultrasound is negative. This very well could be localized cellulitis from foot. We will treat her outpatient with Keflex. Discharged home with return precautions. Patient verbalize understanding instructions and agreement with plan. Diagonstic Imaging: Ultrasound Plain Films/CT/US/NM/MRI: leg Comments NAME: JAKOB BURGESS [facility] REC#: [id number] PT STATUS: REG ER : 1960 PHYSICIAN: MARY CRAWFORD MD ADMIT DATE: 01/02/18/ER Signed Date of Exam: 01/02/18 US VENOUS LOWER EXT RT INDICATION: Right leg pain. Right leg venous Doppler study was performed in the routine fashion with color flow Doppler and waveform analysis. FINDINGS: The right common femoral vein, superficial femoral vein, popliteal vein and visualized portion of the tibial veins show normal compressibility and venous flow patterns. There is normal augmentation. IMPRESSION: No evidence of deep vein thrombosis of the major veins of the right leg. Dictated by: Dictated on workstation # [id number] Dict: 01/02/18 1638 Trans: 01/02/18 1639 Interpreted by: MEE HOLMAN MD Electronically signed by: MEE HOLMAN MD 01/02/18 1639 Departure Impression Primary Impression: Cellulitis of right lower extremity Disposition: 01 HOME, SELF-CARE Condition: Improved Departure-Patient Inst. Decision time for Depature: 17:42 [place]: [facility] [place] Primary Care Physician Patient Instructions: Cellulitis (Skin Infection), Adult (DC) Add. Discharge Instructions: All discharge instructions reviewed with patient and/or family. Voiced understanding. Take medications as directed. Follow-up with your doctor this week for recheck and further evaluation. Return for worse pain, fever, vomiting, weakness, breathing problems or other concerns as needed. Return for increasing pain, swelling or redness of the leg. Scripts Cephalexin (Cephalexin) 500 Mg Tablet 500 MG PO QID, #28 TAB 0 Refills Prov: MARY CRAWFORD MD 01/02/18 MARY CRAWFORD MD Jan 02, 2018 15:24
--- NOTE | 2018-01-02 16:41 | Diagnostic Imaging Report ---
INDICATION: Right leg pain. Right leg venous Doppler study was performed in the routine fashion with color flow Doppler and waveform analysis. FINDINGS: The right common femoral vein, superficial femoral vein, popliteal vein and visualized portion of the tibial veins show normal compressibility and venous flow patterns. There is normal augmentation. IMPRESSION: No evidence of deep vein thrombosis of the major veins of the right leg. Dictated by: Dictated on workstation # [id number]
[2018-01-02] MEDS ORDERED: CEPH500T PO (17:43)
[2018-01-02 17:46] VITALS: BP 140/88
== END 2018-01-02 17:47 | disposition home or self-care (01) ==
LOC: EDUNIT# 14:52 → ER 14:54
DX: L03.115 Cellulitis of right lower limb (principal); F41.9 Anxiety disorder, unspecified; F32.9 Major depressive disorder, single episode, unspecified; I10 Essential (primary) hypertension; Z91.5 Personal history of self-harm; Z96.652 Presence of left artificial knee joint; Z86.79 Personal history of other diseases of the circulatory system; Z79.82 Long term (current) use of aspirin

== ENCOUNTER 2018-04-03 05:34 | Outpatient (CLI) | payer MEDICARE, OTHER ==
[~2018-04-03] VITALS: Ht 177.8 cm; Wt 110.7 kg
[~2018-04-03 05:34] MED LIST changes: +CEPH500T PO; +CITA20TA9 PO; +MIRT15TA6
[2018-04-03] MEDS ORDERED: CITA40TA11 PO (09:17)
[2018-04-03] MEDS ORDERED: MIRT7.5T8 PO (09:17)
[2018-04-03] MEDS ORDERED: AMLO10TA2 PO (09:17)
[2018-04-03] MEDS ORDERED: LISI-552 PO (09:17)
[2018-04-03] MEDS ORDERED: GABA-490 PO (09:17)
== END 2018-04-03 09:21 ==
LOC: PREOP 05:34
PROVIDERS: ATTEND Surgery
DX: Z01.818 Encounter for other preprocedural examination (principal); D17.23 Benign lipomatous neoplasm of skin and subcutaneous tissue of right leg

== ENCOUNTER 2018-04-07 06:06 | Day surgery (SDC) | payer MEDICARE, OTHER ==
[~2018-04-07] VITALS: Ht 177.8 cm; Wt 110.7 kg
[~2018-04-07 06:06] MED LIST changes: +AMLO10TA2 PO; +CITA40TA11 PO; +GABA-490 PO; +MIRT7.5T8 PO
[2018-04-07] MEDS ORDERED: LACTATED RINGERS 1,000 ML IV PRN (06:18)
[2018-04-07] MEDS ORDERED: ceFAZolin 2 GM IV Premixed 50 ML IV ONE (06:30)
[2018-04-07 06:35] VITALS: BP 108/92
[2018-04-07] MEDS ORDERED: LIDOCAINE PF 2% 5 ML (XYLOCAINE) VIAL ONE (06:38)
[2018-04-07] MEDS ORDERED: ONDANSETRON 4 MG/2 ML (SDV) Z0FRAN ONE (06:38)
[2018-04-07] MEDS ORDERED: proPOfol 200 MG/20 ML (DIPRIVAN) VIAL IV ONE (06:38)
[2018-04-07] MEDS ORDERED: SEVOFLURANE (ULTANE) 15 ML INHAL SOLN ONE ×4 (06:38→08:46)
[2018-04-07] MEDS ORDERED: DEXAMETHASONE 10 MG/ML (DECADRON) 1 ML VIAL ONE ×2 (06:38→06:44)
[2018-04-07] MEDS ORDERED: MIDAZOLAM 2 MG/2 ML (VERSED) VIAL ONE (06:39)
[2018-04-07] MEDS ORDERED: fentaNYL INJECTION 100 MCG/2 ML AMP ONE (06:39)
[2018-04-07] MEDS ORDERED: ceFAZolin 2 GM IV Premixed 50 ML ONE (06:42)
[2018-04-07] MEDS ORDERED: BUP/EPI 0.5% 1:200,000 (SENSORCAINE) 30 ML VIAL ONE (07:28)
--- NOTE | 2018-04-07 07:52 | Progress Note-Pre Operative ---
Pre-Operative Progress Note H&P Reviewed The H&P was reviewed, patient examined and no changes noted. Date Seen by Provider: Mar 23, 2018 Time Seen by Provider: 11:00 Date H&P Reviewed: Apr 07, 2018 Time H&P Reviewed: 07:52 Pre-Operative Diagnosis: Lipoma-Right posterior thigh ARELIS LEVY MD Apr 07, 2018 7:52 am
[2018-04-07] MEDS ORDERED: ACHD5005 PO (08:41)
--- NOTE | 2018-04-07 08:41 | Operative Report ---
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 He was offered excision under general anesthetic. Informed consent was obtained after reviewing the operative details and complications of wound infection, hematoma and recurrence. Description of the procedure: He was placed supine on the operating table and general anesthesia induced. Subsequently, he was placed in left lateral decubitus position and his pressure areas were padded and protected. Ancef was administered intravenously as prophylaxis against wound infection. Preemptive analgesia was established using 0.5 percent Marcaine with epinephrine. A vertical incision was made initially and it turned out that the lump itself was a large sebaceous cyst. Therefore the incision was converted into an elliptical one, incorporating the punctum, even though it could not be identified distinctly. The cyst was then excised and hemostasis achieved using cautery. The incision was closed using 3-0 Vicryl for the subcutaneous tissue and 4-0 Vicryl for skin, in a fashion he tolerated the procedure well, was turned supine before being extubated and taken to the recovery room in a stable condition. Findings of the Procedure see op report Allergies and Home Medications Allergies Coded Allergies: No Known Drug Allergies (Unverified , 08/02/16) Home Medications Amlodipine Besylate 10 Mg Tablet, 10 MG PO HS, (Reported) Aspirin 81 Mg Tab.chew, 81 MG PO DAILY, (Reported) Citalopram Hydrobromide 40 Mg Tablet, 40 MG PO DAILY, (Reported) Gabapentin 400 Mg Capsule, 400 MG PO TID, (Reported) Ibuprofen 200 Mg Tablet, 800 MG PO Q8H PRN for PAIN, (Reported) TAKES 4 (200 MG) TABLETS Lisinopril 20 Mg Tablet, 20 MG PO DAILY, (Reported) Mirtazapine 7.5 Mg Tablet, 7.5 MG PO HS, (Reported) Patient Home Medication List Home Medication List Reviewed: Yes ARELIS LEVY MD Apr 07, 2018 8:41 am
--- NOTE | 2018-04-07 08:42 | Discharge Inst-Simple/Standard ---
Discharge Inst-Standard Discharge Medications New, Converted or Re-Newed RX: RX on Chart Patient Instructions/Follow Up Plan of Care/Instructions/FU: Dressings off in 48 hours. Follow-up in a month Activity as Tolerated: Yes Discharge Diet: No Restrictions ARELIS LEVY MD Apr 07, 2018 8:42 am
[2018-04-07] MEDS ORDERED: ONDANSETRON 4 MG/2 ML (SDV) Z0FRAN IVP PRN (09:00)
[2018-04-07] MEDS ORDERED: fentaNYL INJECTION 100 MCG/2 ML AMP IVP PRN (09:00)
[2018-04-07 09:45] VITALS: BP 135/96
[2018-04-07 10:15] VITALS: BP 132/91
[2018-04-07 10:45] VITALS: BP 135/97
[2018-04-07 10:50] VITALS: BP 135/97
--- NOTE | 2018-04-07 12:18 | Anesthesia-General Post-Op ---
General Patient Condition Mental Status/LOC: Same as Preop Cardiovascular: Satisfactory Nausea/Vomiting: Absent Respiratory: Satisfactory Pain: Controlled Complications: Absent Post Op Complications Complications None Follow Up Care/Instructions Patient Instructions None needed. Anesthesia/Patient Condition Patient Condition Patient is doing well, no complaints, stable vital signs, no apparent adverse anesthesia problems. No complications reported per nursing. HALINA ROMANO CRNA Apr 07, 2018 12:18
--- NOTE | 2018-04-11 09:52 | Physician Query-Final Dx ---
PEPPER SHARPE 04/11/18 0952: Clinic Account Progress/Dx Physician Query: Please give the size of the excised lesion thank you Date of Service Apr 07, 2018 at 06:06 ARELIS LEVY MD 04/13/18 1105: Clinic Account Progress/Dx DIAGNOSIS: Diagnosis sebaceous cyst- 8 cm in size thanks PEPPER SHARPE Apr 11, 2018 09:52 ARELIS LEVY MD Apr 13, 2018 11:05
== END 2018-04-07 10:52 | disposition home or self-care (01) ==
LOC: SDC 06:06
PROVIDERS: ATTEND Surgery
DX: L72.3 Sebaceous cyst (principal); I10 Essential (primary) hypertension; F17.210 Nicotine dependence, cigarettes, uncomplicated; Z79.82 Long term (current) use of aspirin
CPT/HCPCS: 87081

== ENCOUNTER → 2019-09-27 | Outpatient (CLI) | payer MEDICARE ==
[~2019-09-27] MED LIST changes: +ACET-2267 PO; +ACHD5005 PO; -AMLO10TA2 PO; +AMLO10TA7 PO; -AMLO2.5T PO; +AMLO2.5T4 PO; +CELE200C PO; +DOCU-143 PO; +GABA800T10 PO; -GABA800T2 PO; +PRD20T PO; -TRAM50TA2 PO; +TRM50T PO
--- NOTE | 2019-09-27 12:31 | Diagnostic Imaging Report ---
INDICATION: 45 pack-year smoking history as well as tobacco chewer for low-dose CT screening as a baseline exam. TECHNIQUE: Protocol low dose CT screening chest performed with multiplanar reconstructions. FINDINGS: A few benign parenchymal and kandice calcified nodules are consistent with old benign granulomatous residua. No noncalcified or suspicious pulmonary nodule. No evidence for edema or pneumonia. Lungs are well expanded and clear. No effusion or pneumothorax. No acute soft tissue or osseous chest wall lesion. IMPRESSION: Benign granulomatous residua, no suspicious finding. Lung RADS category 2 Continued low-dose annual CT screening as follow-up recommended. Dictated by: Dictated on workstation # [id number]
== END ==
LOC: RAD 11:11
PROVIDERS: ATTEND Nurse Practitioner Community Health
DX: J84.10 Pulmonary fibrosis, unspecified (principal); F17.210 Nicotine dependence, cigarettes, uncomplicated

== ENCOUNTER → 2021-09-08 | Emergency (ER) | payer MEDICARE ==
[~2021-09-08] VITALS: Ht 177 cm; Wt 125.0 kg
[~2021-09-08] MED LIST changes: +AMLO-251 PO; -AMLO10TA7 PO; +ASPIRIN 81 MG CHEW (CHILDREN'S ASA) PO ONE; -CITA40TA11 PO; +CITA40TA13 PO; -IBUP-2055 PO; +IBUP-2473 PO; -LISI-552 PO; +LISI20TA26 PO; +MIRT-68; -MIRT15TA6; +methylPREDNISolone 125 MG (Solu-MEDROL) VIAL IVP ONE
--- NOTE | 2021-09-08 11:07 | ED Respiratory ---
General Chief Complaint: Respiratory Problems Stated Complaint: SOB,ANXIETY Source: patient Exam Limitations: no limitations History of Present Illness Date Seen by Provider: Sep 08, 2021 Time Seen by Provider: 10:36 Initial Comments Patient to the ER by EMS from home with chief complaint of acute onset of shortness of air today. He says he gets worse when he gets up and walks around and he also gets shaky and nauseated. He does not have a pulse oximeter. When he sits down the symptoms go away. Is not having any pain anywhere. He took some ibuprofen this morning for his chronic knee and back pain. No history of heart disease. No history of lung disease but he says he smokes cigarettes daily. He is not real smoke as much lately. No COVID-19 vaccination or influenza vaccination. No work-up yet. Denies any sick contacts Allergies and Home Medications Allergies Coded Allergies: No Known Drug Allergies (Unverified , 08/02/16) Patient Home Medication List Home Medication List Reviewed: Yes Acetaminophen (Tylenol Extra Strength) 500 Mg Tablet, 500 MG PO Q4H Prescribed by: DARRYL DANIELSON on 08/04/19 1629 Amlodipine Besylate (Amlodipine Besylate) 10 Mg Tablet, 10 MG PO HS, (Reported) Entered as Reported by: LÓPEZ DUONG on 04/03/18916 Aspirin (Aspirin) 81 Mg Tab.chew, 81 MG PO DAILY, (Reported) Entered as Reported by: DEREJE LEYVA on 08/02/16 1654 Celecoxib (Celebrex) 200 Mg Capsule, 200 MG PO TID Prescribed by: DARRYL DANIELSON on 08/04/19 1626 Citalopram Hydrobromide (Citalopram HBr) 40 Mg Tablet, 40 MG PO DAILY, (Reported) Entered as Reported by: LÓPEZ DUONG on 04/03/18 09 Docusate Sodium (Colace) 100 Mg Capsule, 100 MG PO DAILY Prescribed by: JEREMIAH PEREIRA on 08/04/19 1637 Gabapentin (Gabapentin) 400 Mg Capsule, 400 MG PO TID, (Reported) Entered as Reported by: LÓPEZ DUONG on 04/03/18 09 Hydrocodone Bit/Acetaminophen (Lortab 5 Mg Tablet) 1 Tab Tab, 1-2 TAB PO Q6H PRN for PAIN-MODERATE Prescribed by: JEREMIAH PEREIRA on 08/04/19 1637 Lisinopril (Lisinopril) 20 Mg Tablet, 20 MG PO DAILY, (Reported) Entered as Reported by: LÓPEZ DUONG on 04/03/18916 Mirtazapine (Mirtazapine) 7.5 Mg Tablet, 7.5 MG PO HS, (Reported) Entered as Reported by: LÓPEZ DUONG on 04/03/18916 Prednisone (Prednisone) 20 Mg Tab, 0 PO NEEDED Prescribed by: DARRYL DANIELSON on 08/04/19 163 Review of Systems Review of Systems Constitutional: No chills, No fever; malaise EENTM: No ear discharge, No ear pain Respiratory: No cough; short of breath; No wheezing Cardiovascular: No edema, No palpitations Gastrointestinal: No abdominal pain, No constipation Genitourinary: No discharge, No dysuria Musculoskeletal: No back pain, No joint pain Skin: No dryness, No pruritus, No rash All Other Systems Reviewed Negative Unless Noted: Yes Past Vtnesby-Lhhmnz-Vybozc Hx Patient Social History Tobacco Use?: Yes Tobacco type used: Cigarettes Smoking Status: Current Everyday Smoker Use of E-Cig and/or Vaping dev: No Substance use?: No Immunizations Up To Date Tetanus Booster (TDap): Unknown Seasonal Allergies Seasonal Allergies: Yes Past Medical History Surgeries: Yes (sebacous cyst) Orthopedic Respiratory: No Currently Using CPAP: No Currently Using BIPAP: No Cardiac: Yes Hypertension Neurological: No Reproductive Disorders: No Gastrointestinal: No Musculoskeletal: Yes (chronic r leg pain) Arthritis, Chronic Back Pain Endocrine: No Cancer: No Psychosocial: Yes Anxiety Integumentary: No Blood Disorders: No Adverse Reaction/Blood Tranf: No Family Medical History Hypertension 19 FATHER Myocardial infarction 19 FATHER No Pertinent Family Hx Physical Exam Vital Signs - First Documented 09/08/21 10:51 Temp 36.2 Pulse 82 Resp 18 B/P (MAP) 169/110 (129) Pulse Ox 98 O2 Delivery Room Air Capillary Refill : Height: 5'10.00" Weight: 244lbs. 0.0oz. 110.866551gh; 36.91 BMI Method:Stated General Appearance: mild distress, obese Eyes: Bilateral Eye Normal Inspection, Bilateral Eye PERRL, Bilateral Eye EOMI HEENT: PERRL/EOMI, pharynx normal Neck: non-tender, full range of motion, supple, normal inspection Respiratory: lungs clear, normal breath sounds, no accessory muscle use, respiratory distress (Mild with oxygen saturations in the upper 90s and a respiratory rate of 25-30) Cardiovascular: normal peripheral pulses, regular rate, rhythm Gastrointestinal: normal bowel sounds, non tender Extremities: non-tender, normal inspection, normal capillary refill 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, no motor/sensory deficits, alert, oriented x 3, other (Anxious affect, intermittent mild tremor) Skin: normal color, warm/dry Progress/Results/Core Measures Suspected Sepsis SIRS Temperature: Pulse: Respiratory Rate: Laboratory Tests 09/08/21 11:15: White Blood Count 6.6 Blood Pressure / Mean: Laboratory Tests 09/08/21 11:15: Creatinine 0.70, Platelet Count 216, Total Bilirubin 1.5H Results/Orders Lab Results Laboratory Tests Test 09/08/21 11:15 09/08/21 12:00 09/08/21 13:08 Range/Units White Blood Count 6.6 4.3-11.0 10^3/uL Red Blood Count 4.92 4.30-5.52 10^6/uL Hemoglobin 15.4 13.3-17.7 g/dL Hematocrit 46 40-54 % Mean Corpuscular Volume 94 80-99 fL Mean Corpuscular Hemoglobin 31 25-34 pg Mean Corpuscular Hemoglobin Concent 33 32-36 g/dL Red Cell Distribution Width 12.3 10.0-14.5 % Platelet Count 216 130-400 10^3/uL Mean Platelet Volume 10.1 9.0-12.2 fL Immature Granulocyte % (Auto) 1 % Neutrophils (%) (Auto) 67 42-75 % Lymphocytes (%) (Auto) 18 12-44 % Monocytes (%) (Auto) 10 0-12 % Eosinophils (%) (Auto) 3 0-10 % Basophils (%) (Auto) 1 0-10 % Neutrophils # (Auto) 4.5 1.8-7.8 10^3/uL Lymphocytes # (Auto) 1.2 1.0-4.0 10^3/uL Monocytes # (Auto) 0.7 0.0-1.0 10^3/uL Eosinophils # (Auto) 0.2 0.0-0.3 10^3/uL Basophils # (Auto) 0.0 0.0-0.1 10^3/uL Immature Granulocyte # (Auto) 0.0 0.0-0.1 10^3/uL Percent Immature Platelet Fraction 3.6 0.0-7.6 % Sodium Level 139 135-145 MMOL/L Potassium Level 4.3 3.6-5.0 MMOL/L Chloride Level 105 98-107 MMOL/L Carbon Dioxide Level 21 21-32 MMOL/L Anion Gap 13 5-14 MMOL/L Blood Urea Nitrogen 16 7-18 MG/DL Creatinine 0.70 0.60-1.30 MG/DL Estimat Glomerular Filtration Rate 115 BUN/Creatinine Ratio 23 Glucose Level 119 H 70-105 MG/DL Calcium Level 9.4 8.5-10.1 MG/DL Corrected Calcium 9.2 8.5-10.1 MG/DL Total Bilirubin 1.5 H 0.1-1.0 MG/DL Aspartate Amino Transf (AST/SGOT) 63 H 5-34 U/L Alanine Aminotransferase (ALT/SGPT) 65 H 0-55 U/L Alkaline Phosphatase 89 40-136 U/L Troponin I < 0.028 < 0.028 <0.028 NG/ML C-Reactive Protein High Sensitivity 1.16 H 0.00-0.50 MG/DL Total Protein 7.5 6.4-8.2 GM/DL Albumin 4.3 3.2-4.5 GM/DL Influenza Type A (RT-PCR) Not Detected Not Detecte Influenza Type B (RT-PCR) Not Detected Not Detecte SARS-CoV-2 RNA (RT-PCR) Not Detected Not Detecte Smear Scan YES Blood Gas Puncture Site LEFT RADIAL Blood Gas Patient Temperature 36.2 Arterial Blood pH 7.39 7.37-7.43 Arterial Blood Partial Pressure CO2 38 35-45 MMHG Arterial Blood Partial Pressure O2 85 79-93 MMHG Arterial Blood HCO3 23 23-27 MMOL/L Arterial Blood Total CO2 23.9 21.0-31.0 MMOL/L Arterial Blood Oxygen Saturation 97 94-100 % Arterial Blood Base Excess -1.6 -2.5-2.5 MMOL/L Leo Test POSITIVE Blood Gas Ventilator Setting NO Blood Gas Inspired Oxygen N/A My Orders Orders - UBALDO CAMARA Cbc With Automated Diff (09/08/21 10:56) Comprehensive Metabolic Panel (09/08/21 10:56) Hs C Reactive Protein (09/08/21 10:56) Covid 19 Inhouse Test (09/08/21 10:56) Influenza A And B By Pcr (09/08/21 10:56) Continuous Ekg Monitoring (09/08/21 11:07) Ekg Tracing (09/08/21 11:07) Aspirin Chewable Tablet (Baby Aspirin Ch (09/08/21 11:15) Troponin I Granite (09/08/21 11:07) Arterial Blood Gas (09/08/21 12:03) Arterial Blood Draw - Obtain (09/08/21 ) Chest Pa/Lat (2 View) (09/08/21 12:21) Orthostatic Vital Signs (Adult (09/08/21 13:08) Troponin I Granite (09/08/21 13:10) Medications Given in ED Current Medications Medications Dose Ordered Sig/Arianna Route Start Time Stop Time Status Last Admin Dose Admin Aspirin 324 mg ONCE ONCE PO 09/08/21 11:15 09/08/21 11:16 DC 09/08/21 11:19 324 MG Vital Signs/I&O 09/08/21 09/08/21 09/08/21 10:51 11:55 13:20 Temp 36.2 Pulse 82 73 71 80 85 Resp 18 18 B/P (MAP) 169/110 (129) 158/108 133/107 (116) 133/106 (115) 135/97 (110) Pulse Ox 98 96 O2 Delivery Room Air Room Air Capillary Refill : Progress Note #1: Time: 11:04 Progress Note Patient has good oxygen sats and no fever for us. EMS did report 101 temperature. We will swab him for Covid, flu check some labs and a chest x-ray. An ABG to help evaluate his oxygenation status. He does not appear to have any acute shortness of breath however is concerning about his exertional dyspnea so we will get an EKG troponin and give him some aspirin. Other than his tachypnea he has aseptic vital signs. We will get an ABG to help us differentiate hypoxemia from anxiety. Progress Note #2: Time: 13:07 Progress Note Patient is doing fine vitals are fine. No evidence of fever. We will do a set of orthostatic vital signs now that his liter of fluids is an. He is not having any nausea. We will also repeat a troponin. If these are okay we will have him follow-up outpatient with cardiology to address his symptoms and see if there is any atypical angina. Heart score 3 points, low risk. ECG Initial ECG Impression Date: Sep 08, 2021 Initial ECG Impression Time: 11:23 Initial ECG Rate: 70 Initial ECG Rhythm: Normal Sinus Initial ECG Intervals: Normal Initial ECG Impression: Normal Initial ECG Comparisson: No Previous ECG Available Comment Normal sinus rhythm without clinically relevant ST changes or dysrhythmia Diagnostic Imaging Diagonstic Imaging: Xray Plain Films/CT/US/NM/MRI: chest Comments [facility], [facility]. [place], [place] NAME: JAKOB BURGESS [facility] REC#: [id number] PT STATUS: REG ER : 1960 PHYSICIAN: UBALDO CAMARA MD ADMIT DATE: 09/08/21/ER Draft Date of Exam:09/08/21 CHEST PA/LAT (2 VIEW) INDICATION: Shortness of breath. PA and lateral chest. FINDINGS: Heart size and pulmonary vascularity are normal. Lungs are clear. There are no effusions or pneumothoraces. IMPRESSION: Negative chest. Dictated on workstation # [id number] Dict: 09/08/21 1243 Trans: 09/08/21 1245 [id number] Interpreted by: MARY CORREIA MD Electronically signed by: Reviewed: Reviewed by Me Departure Impression Primary Impression: Exertional dyspnea Additional Impression: Viral syndrome Disposition: 01 HOME, SELF-CARE Condition: Stable Departure-Patient Inst. Decision time for Depature: 15:15 Referrals: [facility] [place]) Primary Care Physician ASUNCION LAUREN (Family) Primary Care Physician ILENE DE LA CRUZ MD Patient Instructions: Shortness of Breath (Dyspnea) (DC), Viral Syndrome (DC) Add. Discharge Instructions: While you were having any chest pain you certainly are having some shortness of breath. We will try dose of steroids to see if this helps you over the next couple days. Call Dr. De La Cruz and request a follow-up appointment to review your heart risk factors and see if there is any extra help you need managing your blood pressure medications. Call your primary care doctor and request follow-up appointment in the next 1 to 2 weeks to see whether or not the steroid helped you. Return to the ER promptly if you are having oxygen saturations consistently below 90%, chest pain or other worrisome symptoms All discharge instructions reviewed with patient and/or family. Voiced understanding. Copy Copies To 1: ILENE DE LA CRUZ MD, TITUS J Sep 08, 2021 11:07
[2021-09-08 11:18] LABS: HEMOGLOBIN 15.4 g/dL (13.3-17.7); MEAN CORPUSCULAR HGB CONC 33 g/dL (32-36); MEAN CORPUSCULAR VOLUME 94 fL (80-99); MEAN PLATELET VOLUME 10.1 fL (9.0-12.2); NEUTROPHILS % (AUTO) 67 % (42-75)
[2021-09-08 11:20] LABS: BASOPHILS % (AUTO) 1 % (0-10); EOSINOPHILS # (AUTO) 0.2 10^3/uL (0.0-0.3); EOSINOPHILS % (AUTO) 3 % (0-10); HEMATOCRIT 46 % (40-54); LYMPHOCYTES # (AUTO) 1.2 10^3/uL (1.0-4.0); LYMPHOCYTES % (AUTO) 18 % (12-44); MEAN CORPUSCULAR HEMOGLOBIN 31 pg (25-34); MONOCYTES # (AUTO) 0.7 10^3/uL (0.0-1.0); MONOCYTES % (AUTO) 10 % (0-12); NEUTROPHILS # (AUTO) 4.5 10^3/uL (1.8-7.8); PLATELET COUNT 216 10^3/uL (130-400); WHITE BLOOD COUNT 6.6 10^3/uL (4.3-11.0)
[2021-09-08 11:26] LABS: SMEAR SCAN COMMENT YES
[2021-09-08 11:53] LABS: ALANINE AMINOTRANSFERASE 65 U/L (0-55); ALBUMIN 4.3 GM/DL (3.2-4.5); ALKALINE PHOSPHATASE 89 U/L (40-136); BILIRUBIN,TOTAL 1.5 MG/DL (0.1-1.0); BUN/CREATININE RATIO 23; CALCIUM 9.4 MG/DL (8.5-10.1); CARBON DIOXIDE 21 MMOL/L (21-32); CHLORIDE 105 MMOL/L (98-107); GFR ESTIMATED 115; GLUCOSE 119 MG/DL (70-105); POTASSIUM 4.3 MMOL/L (3.6-5.0); SODIUM 139 MMOL/L (135-145); TOTAL PROTEIN 7.5 GM/DL (6.4-8.2)
[2021-09-08 12:10] LABS: ABG BASE EXCESS -1.6 MMOL/L (-2.5-2.5); ABG OXYGEN SATURATION 97 % (94-100); ABG PCO2 38 MMHG (35-45); ABG PH 7.39 (7.37-7.43); ABG PO2 85 MMHG (79-93); ABG TCO2 23.9 MMOL/L (21.0-31.0)
[2021-09-08 12:11] LABS: ALLENS TEST POSITIVE; PATIENT TEMP 36.2; VENTILATOR NO
--- NOTE | 2021-09-08 12:46 | Diagnostic Imaging Report ---
INDICATION: Shortness of breath. PA and lateral chest. FINDINGS: Heart size and pulmonary vascularity are normal. Lungs are clear. There are no effusions or pneumothoraces. IMPRESSION: Negative chest. Dictated by: Dictated on workstation # [id number]
[2021-09-08 13:20] VITALS: BP_SYST 133; BP_SYST 135; BP_DIAS 106; BP_DIAS 107; BP_DIAS 97
[2021-09-08 15:42] VITALS: BP 154/110
== END ==
LOC: EDUNIT# 10:46 → ER 10:53
DX: R06.09 Other forms of dyspnea (principal); B34.9 Viral infection, unspecified; I10 Essential (primary) hypertension; E66.9 Obesity, unspecified; F41.9 Anxiety disorder, unspecified; G89.29 Other chronic pain; M54.9 Dorsalgia, unspecified; F17.210 Nicotine dependence, cigarettes, uncomplicated; Z68.36 Body mass index [BMI] 36.0-36.9, adult; Z20.822 Contact with and (suspected) exposure to COVID-19; Z79.82 Long term (current) use of aspirin; Z79.891 Long term (current) use of opiate analgesic; Z79.899 Other long term (current) drug therapy
CPT/HCPCS: 36415; 36600; 71046; 80053; 82805; 84484; 85025; 86141; 87636; 93005

== ENCOUNTER → 2021-10-12 | Outpatient (CLI) | payer MEDICARE ==
[~2021-10-12] MED LIST changes: -ASPIRIN 81 MG CHEW (CHILDREN'S ASA) PO ONE; -methylPREDNISolone 125 MG (Solu-MEDROL) VIAL IVP ONE
[2021-10-12 16:06] LABS: ALBUMIN 4.2 GM/DL (3.2-4.5); POTASSIUM 4.2 MMOL/L (3.6-5.0)
[2021-10-12 16:07] LABS: CALCIUM 9.1 MG/DL (8.5-10.1)
[2021-10-12 16:09] LABS: TOTAL PROTEIN 7.1 GM/DL (6.4-8.2)
[2021-10-12 16:11] LABS: BILIRUBIN,TOTAL 0.8 MG/DL (0.1-1.0)
[2021-10-12 16:12] LABS: CREATININE SERUM 0.81 MG/DL (0.60-1.30)
== END ==
LOC: LAB 15:41
PROVIDERS: ATTEND Internal Medicine Cardiovascular Disease
DX: R74.01 Elevation of levels of liver transaminase levels (principal)
CPT/HCPCS: 36415; 80053

== ENCOUNTER 2023-06-03 12:34 | Emergency (ER) | payer MEDICARE ==
[~2023-06-03] VITALS: Ht 177.8 cm; Wt 136.1 kg
[2023-06-03] MEDS ORDERED: NS IV 1000 ML 1,000 ML IV STA (12:57)
[2023-06-03] MEDS ORDERED: NS IV 1000 ML 1,000 ML IV SCH (13:00)
--- NOTE | 2023-06-03 13:02 | ED General ---
General Stated Complaint: ALCOHOL DETOX | Source of Information: Patient Exam Limitations: No Limitations History of Present Illness Date Seen by Provider: Jun 03, 2023 Time Seen by Provider: 12:59 Initial Comments Patient is a 62-year-old male with a history of chronic low back pain and bilateral knee pain, chronic alcohol abuse who presents ED for medical detox. Patient states he drinks about 3 to 4 pints of whiskey daily. Drink about 2 pints of whiskey today. States he is intoxicated. States that he drinks daily. History of detox in the past in [place] according to family at bedside. States they contacted rehab in [place] and [facility] and states that patient needs inpatient medical detox before being transferred. Patient denies of any other complaint besides feeling intoxicated. Denies of any specific chest pain, abdominal pain, headache, visual changes. He does vomit when he does not drink. He has been having intermittent vomiting. Denies any tremoring. Patient denies sore throat, visual changes, unilateral muscle weakness or sensory changes, dysuria, hematuria. Allergies and Home Medications Allergies Coded Allergies: No Known Drug Allergies (Unverified , 08/02/16) Patient Home Medication List Home Medication List Reviewed: Yes Acetaminophen (Tylenol Extra Strength) 500 Mg Tablet, 500 MG PO Q4H Prescribed by: DARRYL DANIELSON on 08/04/19 1629 Amlodipine Besylate (Amlodipine Besylate) 10 Mg Tablet, 10 MG PO HS, (Reported) Entered as Reported by: LÓPEZ DUONG on 04/03/18 09 Aspirin (Aspirin) 81 Mg Tab.chew, 81 MG PO DAILY, (Reported) Entered as Reported by: DEREJE LEYVA on 08/02/16 1654 Celecoxib (Celebrex) 200 Mg Capsule, 200 MG PO TID Prescribed by: DARRYL DANIELSON on 08/04/19 1626 Citalopram Hydrobromide (Citalopram HBr) 40 Mg Tablet, 40 MG PO DAILY, (Reported) Entered as Reported by: LÓPEZ DUONG on 04/03/18 09 Docusate Sodium (Colace) 100 Mg Capsule, 100 MG PO DAILY Prescribed by: JEREMIAH PEREIRA on 08/04/19 1637 Gabapentin (Gabapentin) 400 Mg Capsule, 400 MG PO TID, (Reported) Entered as Reported by: LÓPEZ DUONG on 04/03/18916 Hydrocodone Bit/Acetaminophen (Lortab 5 Mg Tablet) 1 Tab Tab, 1-2 TAB PO Q6H IN N for PAIN-MODERATE Prescribed by: JEREMIAH PEREIRA on 08/04/19 163 Lisinopril (Lisinopril) 20 Mg Tablet, 20 MG PO DAILY, (Reported) Entered as Reported by: LÓPEZ DUONG on 04/03/18916 Mirtazapine (Mirtazapine) 7.5 Mg Tablet, 7.5 MG PO HS, (Reported) Entered as Reported by: LÓPEZ DUONG on 04/03/18916 Prednisone (Prednisone) 20 Mg Tab, 0 PO NEEDED Prescribed by: DARRYL DANIELSON on 08/04/19 163 Review of Systems Review of Systems Constitutional: No chills, No diaphoresis; malaise, weakness EENTM: No ear pain, No blurred vision, No double vision, No eye pain Respiratory: No cough Cardiovascular: No chest pain Gastrointestinal: No abdominal pain, No diarrhea; nausea, vomiting Genitourinary: No decreased output, No discharge Musculoskeletal: No back pain, No joint pain Skin: No change in color, No change in hair/nails Psychiatric/Neurological: Other (Confused, intoxicated) All Other Systems Reviewed Negative Unless Noted: Yes Past Inqqsfw-Mrcjjs-Gvvgfa Hx Immunizations Up To Date Tetanus Booster (TDap): Unknown First/Initial COVID19 Vaccinat: NO Second COVID19 Vaccination Maxwell: NO Seasonal Allergies Seasonal Allergies: Yes Past Medical History Surgeries: Yes (sebacous cyst) Orthopedic Respiratory: No Currently Using CPAP: No Currently Using BIPAP: No Cardiac: Yes Hypertension Neurological: No Reproductive Disorders: No Gastrointestinal: No Musculoskeletal: Yes (chronic r leg pain) Arthritis, Chronic Back Pain Endocrine: No Cancer: No Psychosocial: Yes Anxiety Integumentary: No Blood Disorders: No Adverse Reaction/Blood Tranf: No Family Medical History Hypertension 19 FATHER Myocardial infarction 19 FATHER No Pertinent Family Hx Physical Exam Vital Signs Vital Signs - First Documented 06/03/23 12:43 Temp 36.7 Pulse 87 Resp 16 B/P (MAP) 141/101 (114) Pulse Ox 94 O2 Delivery Room Air Capillary Refill : Height, Weight, BMI Height: 5'10.00" Weight: 244lbs. 0.0oz. [id number]; 39.00 BMI Method:Stated General Appearance: Other (Intoxicated) Eyes: Bilateral Eye Normal Inspection, Bilateral Eye PERRL, Bilateral Eye EOMI HEENT: PERRL/EOMI, TMs Normal, Normal ENT Inspection, Pharynx Normal Neck: Full Range of Motion, Normal Inspection, Non Tender, Supple Respiratory: Chest Non Tender, Lungs Clear, Normal Breath Sounds, No Accessory Muscle Use, No Respiratory Distress Cardiovascular: Regular Rate, Rhythm, No Edema, No Gallop, No JVD Gastrointestinal: Normal Bowel Sounds, No Organomegaly Back: Vertebral Tenderness (Bilateral lower lumbar paraspinal muscle tenderness) Extremity: Normal Capillary Refill, Normal Inspection, Normal Range of Motion, Non Tender Neurologic/Psychiatric: Alert, Oriented x3, No Motor/Sensory Deficits, Normal Mood/Affect, asbestos remover II-XII Norm as Tested Progress/Results/Core Measures Suspected Sepsis SIRS Temperature: Pulse: Respiratory Rate: Laboratory Tests 06/03/23 12:54: White Blood Count 12.3H Blood Pressure / Mean: Laboratory Tests 06/03/23 12:54: Creatinine 0.73, Platelet Count 371, Total Bilirubin 0.5 Results/Orders Lab Results Laboratory Tests Test 06/03/23 12:54 06/03/23 13:25 06/03/23 14:04 Range/Units White Blood Count 12.3 H 4.3-11.0 10^3/uL Red Blood Count 4.82 4.30-5.52 10^6/uL Hemoglobin 14.3 13.3-17.7 g/dL Hematocrit 43 40-54 % Mean Corpuscular Volume 89 80-99 fL Mean Corpuscular Hemoglobin 30 25-34 pg Mean Corpuscular Hemoglobin Concent 33 32-36 g/dL Red Cell Distribution Width 14.5 10.0-14.5 % Platelet Count 371 130-400 10^3/uL Mean Platelet Volume 9.8 9.0-12.2 fL Immature Granulocyte % (Auto) 1 % Neutrophils (%) (Auto) 65 42-75 % Lymphocytes (%) (Auto) 25 12-44 % Monocytes (%) (Auto) 7 0-12 % Eosinophils (%) (Auto) 1 0-10 % Basophils (%) (Auto) 1 0-10 % Neutrophils # (Auto) 7.9 H 1.8-7.8 10^3/uL Lymphocytes # (Auto) 3.1 1.0-4.0 10^3/uL Monocytes # (Auto) 0.9 0.0-1.0 10^3/uL Eosinophils # (Auto) 0.2 0.0-0.3 10^3/uL Basophils # (Auto) 0.1 0.0-0.1 10^3/uL Immature Granulocyte # (Auto) 0.1 0.0-0.1 10^3/uL Sodium Level 139 135-145 MMOL/L Potassium Level 3.7 3.6-5.0 MMOL/L Chloride Level 105 98-107 MMOL/L Carbon Dioxide Level 20 L 21-32 MMOL/L Anion Gap 14 5-14 MMOL/L Blood Urea Nitrogen 8 7-18 MG/DL Creatinine 0.73 0.60-1.30 MG/DL Estimat Glomerular Filtration Rate 103 BUN/Creatinine Ratio 11 Glucose Level 134 H 70-105 MG/DL Calcium Level 9.1 8.5-10.1 MG/DL Corrected Calcium 8.9 8.5-10.1 MG/DL Total Bilirubin 0.5 0.1-1.0 MG/DL Aspartate Amino Transf (AST/SGOT) 32 5-34 U/L Alanine Aminotransferase (ALT/SGPT) 41 0-55 U/L Alkaline Phosphatase 82 40-136 U/L Total Protein 6.9 6.4-8.2 GM/DL Albumin 4.2 3.2-4.5 GM/DL Salicylates Level < 5.0 L 5.0-20.0 MG/DL Acetaminophen Level < 10 L 10-30 UG/ML Serum Alcohol 327 *H <10 MG/DL Influenza Type A (RT-PCR) Not Detected Not Detecte Influenza Type B (RT-PCR) Not Detected Not Detecte SARS-CoV-2 RNA (RT-PCR) Not Detected Not Detecte Urine Color YELLOW Urine Clarity CLEAR Urine pH 5.5 5-9 Urine Specific Wayan <=1.005 1.016-1.022 Urine Protein NEGATIVE NEGATIVE Urine Glucose (UA) NEGATIVE NEGATIVE Urine Ketones NEGATIVE NEGATIVE Urine Nitrite NEGATIVE NEGATIVE Urine Bilirubin NEGATIVE NEGATIVE Urine Urobilinogen 0.2 < = 1.0 MG/DL Urine Leukocyte Esterase NEGATIVE NEGATIVE Urine RBC (Auto) NEGATIVE NEGATIVE Urine RBC NONE /HPF Urine WBC NONE /HPF Urine Crystals NONE /LPF Urine Bacteria NEGATIVE /HPF Urine Casts NONE /LPF Urine Mucus NEGATIVE /LPF Urine Culture Indicated NO Urine Opiates Screen NEGATIVE NEGATIVE Urine Oxycodone Screen NEGATIVE NEGATIVE Urine Methadone Screen NEGATIVE NEGATIVE Urine Propoxyphene Screen NEGATIVE NEGATIVE Urine Barbiturates Screen NEGATIVE NEGATIVE Ur Tricyclic Antidepressants Screen NEGATIVE NEGATIVE Urine Phencyclidine Screen NEGATIVE NEGATIVE Urine Amphetamines Screen NEGATIVE NEGATIVE Urine Methamphetamines Screen NEGATIVE NEGATIVE Urine Benzodiazepines Screen POSITIVE H NEGATIVE Urine Cocaine Screen NEGATIVE NEGATIVE Urine Cannabinoids Screen NEGATIVE NEGATIVE My Orders Orders - SEBASTIAN PERSON PA Ua Culture If Indicated (06/03/23 12:57) Cbc With Automated Diff (06/03/23 12:57) Comprehensive Metabolic Panel (06/03/23 12:57) Alcohol (06/03/23 12:57) Drug Screen Stat (Urine) (06/03/23 12:57) Acetaminophen (06/03/23 12:57) Salicylate (06/03/23 12:57) Ekg Tracing (06/03/23 12:57) Ed Iv/Invasive Line Start (06/03/23 12:57) Monitor-Rhythm Ecg Trace Only (06/03/23 12:57) Ed Iv/Invasive Line Start (06/03/23 12:57) Ns Iv 1000 Ml (Ns Iv 1000 Ml) (06/03/23 13:00) Ns Iv 1000 Ml (Ns Iv 1000 Ml) (06/03/23 12:57) Chest 1 View, Ap/Pa Only (06/03/23 13:16) Troponin I Nance (06/03/23 13:16) Covid 19 Inhouse Test (06/03/23 13:19) Influenza A And B By Pcr (06/03/23 13:19) Vital Signs/I&O 06/03/23 06/03/23 12:43 14:20 Temp 36.7 Pulse 87 Resp 16 B/P (MAP) 141/101 (114) 142/95 Pulse Ox 94 O2 Delivery Room Air Capillary Refill : ECG Comment Sinus rhythm, borderline left axis deviation, moderate voltage criteria for LVH, 70 bpm, QRS duration 102 MS, QTc 416 MS Departure Communication (PCP) Patient presents ED with ex- for alcohol detox. Recently seen at [place] ER was discharged with Valium. Patient is wanting admission for medical detox. History of chronic alcohol abuse. Drinks 3 to 4 pints of whiskey daily. Drink about 2 pints a day. Patient does appear intoxicated. History of vomiting once his alcohol level starts to decrease. Denies history of seizures. Patient denies of any other complaint such as chest pain, abdominal pain, headache, dizziness, visual changes. No active hallucinations. Denies any homicidal or suicidal thoughts. Patient vital signs are stable. Lab work was obtained. CBC grossly unremarkable. Chemistry was grossly unremarkable. Normal liver enzymes. Alcohol level 327. Drug screen positive for benzos. Urinalysis negative for infection. COVID influenza negative. EKG showed sinus rhythm with moderate LVH. History of hypertension. Patient was started on a liter of fluid. Patient lab work is grossly unremarkable besides his alcohol level. Contacted [facility] in [place] and states patient cannot be evaluated until his alcohol level is at a certain amount and they do not currently have any beds at this time. They suggest calling later this evening. Attempted to call the addiction treatment center In [place] twice but no one answered. According to ex- they are wanting admission for medical detox. Discussed with family th at typically we do not do medical detox here. I suggest contacting the addiction treatment center. Patient became agitated and was wanting to leave. Patient pulled out his IV. Family here at bedside to drive patient. Provided resources for family. No evidence of seizures. No evidence of DT Impression Primary Impression: Alcohol abuse Disposition: 01 HOME, SELF-CARE Condition: Stable Departure-Patient Inst. Decision time for Depature: 14:16 Referrals: [facility] (PCP/Family) Primary Care Physician Patient Instructions: Alcohol Use Disorder (DC) Add. Discharge Instructions: Recommend following up with addiction treatment center in [facility] [phone] Address is [address] [place] [address] SEBASTIAN Emmanuel Jun 03, 2023 13:02
[2023-06-03 13:05] LABS: BASOPHILS # (AUTO) 0.1 10^3/uL (0.0-0.1); BASOPHILS % (AUTO) 1 % (0-10); EOSINOPHILS # (AUTO) 0.2 10^3/uL (0.0-0.3); EOSINOPHILS % (AUTO) 1 % (0-10); HEMATOCRIT 43 % (40-54); HEMOGLOBIN 14.3 g/dL (13.3-17.7); LYMPHOCYTES # (AUTO) 3.1 10^3/uL (1.0-4.0); LYMPHOCYTES % (AUTO) 25 % (12-44); MEAN CORPUSCULAR HEMOGLOBIN 30 pg (25-34); MEAN CORPUSCULAR HGB CONC 33 g/dL (32-36); MEAN CORPUSCULAR VOLUME 89 fL (80-99); MEAN PLATELET VOLUME 9.8 fL (9.0-12.2); MONOCYTES # (AUTO) 0.9 10^3/uL (0.0-1.0); MONOCYTES % (AUTO) 7 % (0-12); NEUTROPHILS # (AUTO) 7.9 10^3/uL (1.8-7.8); NEUTROPHILS % (AUTO) 65 % (42-75); PLATELET COUNT 371 10^3/uL (130-400); WHITE BLOOD COUNT 12.3 10^3/uL (4.3-11.0)
[2023-06-03 13:23] LABS: ALANINE AMINOTRANSFERASE 41 U/L (0-55); ALBUMIN 4.2 GM/DL (3.2-4.5); ALKALINE PHOSPHATASE 82 U/L (40-136); BILIRUBIN,TOTAL 0.5 MG/DL (0.1-1.0); BUN/CREATININE RATIO 11; CALCIUM 9.1 MG/DL (8.5-10.1); CARBON DIOXIDE 20 MMOL/L (21-32); CHLORIDE 105 MMOL/L (98-107); CREATININE SERUM 0.73 MG/DL (0.60-1.30); GFR ESTIMATED 103; GLUCOSE 134 MG/DL (70-105); POTASSIUM 3.7 MMOL/L (3.6-5.0); SALICYLATE < 5.0 MG/DL (5.0-20.0); SODIUM 139 MMOL/L (135-145); TOTAL PROTEIN 6.9 GM/DL (6.4-8.2)
[2023-06-03 13:26] LABS: ACETAMINOPHEN < 10 UG/ML (10-30)
--- NOTE | 2023-06-03 14:06 | Diagnostic Imaging Report ---
EXAMINATION: Chest, one view. HISTORY: Short of breath. COMPARISON: 08/08/2016. FINDINGS: The lungs are clear without edema or pneumonia. No pleural effusion or pneumothorax. Heart size is normal. IMPRESSION: 1. Clear lungs. Dictated by: Dictated on workstation # [id number]
[2023-06-03 14:20] VITALS: BP 142/95
[2023-06-03 14:24] LABS: CLARITY,URINE CLEAR; COLOR,URINE YELLOW; PH,URINE 5.5 (5-9)
[2023-06-03 14:25] LABS: BACTERIA,URINE NEGATIVE /HPF; BILIRUBIN,URINE NEGATIVE (NEGATIVE); GLUCOSE, URINE (UA) NEGATIVE (NEGATIVE); KETONES,URINE NEGATIVE (NEGATIVE); LEUKOCYTE ESTERASE ,URINE NEGATIVE (NEGATIVE); NITRITE,URINE NEGATIVE (NEGATIVE); PROTEIN,URINE NEGATIVE (NEGATIVE)
[2023-06-03 14:34] LABS: AMPHETAMINE SCREEN, URINE NEGATIVE (NEGATIVE); BARBITURATE SCREEN URINE NEGATIVE (NEGATIVE); BENZODIAZEPINES SCREEN URINE POSITIVE (NEGATIVE); CANNABINOID SCREEN, URINE NEGATIVE (NEGATIVE); COCAINE SCREEN URINE NEGATIVE (NEGATIVE); METHADONE STAT NEGATIVE (NEGATIVE); OPIATE SCREEN URINE NEGATIVE (NEGATIVE); OXYCODONE STAT NEGATIVE (NEGATIVE); PROPOXYPHENE STAT NEGATIVE (NEGATIVE); TRICYCLIC ANTIDEPRESSANTS SCRE NEGATIVE (NEGATIVE)
== END 2023-06-03 14:20 | disposition home or self-care (01) ==
LOC: EDUNIT# 12:34 → ER 12:36
DX: F10.10 Alcohol abuse, uncomplicated (principal); M54.50 Low back pain, unspecified; Y90.8 Blood alcohol level of 240 mg/100 ml or more; Z28.310 Unvaccinated for COVID-19; Z20.822 Contact with and (suspected) exposure to COVID-19
CPT/HCPCS: 71045; 80053; 80306; 81000; 84484; 85025; 87636; 99284; G0480 ×3; 36415; 80320; 80329